=== PATIENT | female | born 1995 | race Hispanic/Latino ===

== ENCOUNTER 2021-03-13 08:50 | Emergency (ER) | payer OTHER ==
[~2021-03-13] VITALS: Ht 152.4 cm; Wt 85.1 kg
== END 2021-03-13 09:10 | disposition home or self-care (01) ==
LOC: FSED 08:55
DX: M79.644 Pain in right finger(s) (principal); S63.601A Unspecified sprain of right thumb, initial encounter; X50.1XXA Overexertion from prolonged static or awkward postures, initial encounter; Y92.008 Other place in unspecified non-institutional (private) residence as the place of occurrence of the external cause
CPT/HCPCS: 99282